=== PATIENT | female | born 1970 | race Caucasian/White ===

== ENCOUNTER 2018-03-26 03:49 | Emergency (ER) | payer SELFPAY ==
[~2018-03-26] VITALS: Ht 152.4 cm; Wt 79.4 kg
[2018-03-26 03:50] VITALS: BP 134/75
--- NOTE | 2018-03-26 03:55 | NUR ---
PT PRESENTS TO ED WITH EPIGASTRIC PAIN RADIATING TO MID THORACIC BACK. PT STATES SHARP STABBING SEVERE PRESSURE PAIN WITH SOB X5 HRS. 12/30. A&OX4. BILAT LUNGS CLEAR THROUGHOUT. HR EVEN AND REGULAR, NSR. VSS. POSITIONED IN BED FOR COMFORT WITH SIDE RAIL UP. ER MD AWARE. CONTINUE TO MONITOR.
--- NOTE | 2018-03-26 03:55 | NUR ---
PT TAKEN TO BED 4
--- NOTE | 2018-03-26 04:03 | NUR ---
Dr. Vicente evaluating patient at bedside.
[2018-03-26] MEDS ORDERED: ONDANSETRON 4 MG/2 ML VIAL IVP ONE (04:05)
[2018-03-26] MEDS ORDERED: KETOROLAC 30 MG/ML VIAL IVP ONE (04:05)
[2018-03-26] MEDS ORDERED: NACL 0.9% 500 ML IV ONE (04:05)
--- NOTE | 2018-03-26 04:20 | NUR ---
Ultrasound at bedside.
[2018-03-26 04:30] LABS: BASOPHILS % (AUTO) 0.3 % (0.0-2.0); EOSINOPHILS # (AUTO) 0.1 K/uL (0-0.4); EOSINOPHILS % (AUTO) 1.5 % (0.0-4.0); HEMATOCRIT 41.5 % (36-48); HEMOGLOBIN 13.5 g/dL (12.0-16.0); LYMPHOCYTES # (AUTO) 2.1 K/uL (2.5-16.5); LYMPHOCYTES % (AUTO) 23.6 % (20.5-51.1); MEAN CORPUSCULAR HEMOGLOBIN 31 pg (27-31); MEAN CORPUSCULAR HGB CONC 33 g/dL (33-37); MEAN CORPUSCULAR VOLUME 93.9 fL (80-94); MONOCYTES # (AUTO) 0.5 K/uL (0.8-1.0); MONOCYTES % (AUTO) 5.8 % (1.7-9.3); NEUTROPHILS # (AUTO) 6.2 K/uL (1.8-7.7); NEUTROPHILS % (AUTO) 68.8 % (42.2-75.2); PLATELET COUNT (AUTO) 253 K/uL (140-450); RED BLOOD CELL COUNT(AUTO) 4.42 MIL/uL (4.20-5.40); RED CELL DISTRIBUTION WIDTH 12.8 % (11.6-13.7)
[2018-03-26 04:39] LABS: ALBUMIN 4.1 g/dL (3.4-5.0); ANION GAP 14.3 (8-16); CARBON DIOXIDE 27.3 mmol/L (21-32); CREATININE 0.7 mg/dL (0.6-1.3); POTASSIUM 3.6 mmol/L (3.5-5.1); TOTAL BILIRUBIN 0.4 mg/dL (0.0-1.0)
[2018-03-26] MEDS ORDERED: MORPHINE SULFATE 4 MG/ML SYR IVP ONE (05:05)
[2018-03-26 05:30] VITALS: BP 136/74
--- NOTE | 2018-03-26 05:30 | NUR ---
Patient discharged with v/s stable. Written and verbal after care instructions given and explained. Patient alert, oriented and verbalized understanding of instructions. Ambulatory with steady gait. All questions addressed prior to discharge. ID band removed. Patient advised to follow up with PMD. Rx of TRAMADOL, ZOFRAN, AND MOTRIN given. Patient educated on indication of medication including possible reaction and side effects. Opportunity to ask questions provided and answered.
== END 2018-03-26 05:30 | disposition home or self-care (01) ==
LOC: MED 03:49
DX: K80.20 Calculus of gallbladder without cholecystitis without obstruction (principal); R03.0 Elevated blood-pressure reading, without diagnosis of hypertension
CPT/HCPCS: 36415; 76705; 80053; 81002; 81025; 83690; 85025; 96361; 96374; 96375; 99284; J1885; J2270; J2405; J7030; Q0092